=== PATIENT | male | born 1980 | race Caucasian/White ===

== ENCOUNTER 2020-02-24 11:24 | Outpatient (CLI) | payer OTHER, SELFPAY ==
--- NOTE | ~2020-02-24 | XR_ITS ---
XR knee RT min 4V, XR knee LT min 4V 02/24/2020 11:48 Indication: Bilateral knee pain Procedure: 4 views each knee Comparison: No prior studies for comparison. Findings: No acute fracture or traumatic malalignment. Small bilateral knee effusions. No significant joint space narrowing. No erosive changes. No radiopaque foreign bodies. Impression: 1: Small knee effusions. Reviewed, dictated and finalized at location B. Impression: 1: Small knee effusions. Impression: 1: Small knee effusions.
== END 2020-02-24 11:25 | disposition home or self-care (01) ==
LOC: ANHIMG 11:32
PROVIDERS: PCP Emergency Medicine; Visit Provider Emergency Medicine
DX: M25.461 Effusion, right knee (principal); M25.462 Effusion, left knee
CPT/HCPCS: 73564

== ENCOUNTER 2020-07-22 19:31 | Emergency (ER) | payer OTHER, SELFPAY ==
[2020-07-22 19:39] VITALS: BP 147/89; PULSE 111; RESP 29; TEMP 35.8; O2SAT 100
--- NOTE | 2020-07-22 20:42 | PC.NURSE ---
Per pt took 1/2 gram amphetimines yesterday.
--- NOTE | 2020-07-22 20:52 | ED.DIZZY ---
HPI - Dizziness General Chief Complaint: Dizziness Stated Complaint: headache/dizzy/thinks he was poisoned Time Seen by Provider: 07/22/20 20:42 Source: patient Mode of arrival: ambulatory Limitations: no limitations History of Present Illness HPI Narrative: A 39-year-old male comes into the emergency department tonight with complaints of dizziness, lightheadedness and all of his veins constricting . Patient states that this happened after he was drinking a cup of coffee. He notes that he felt he may have been poisoned by coworkers. He states that he thinks that none of his coworkers like him. Patient does admit to using amphetamines yesterday. He was very anxious when this was happening. He now states that he is feeling fine, has returned to normal and does not wish to be seen. Related Data Home Medications Medication Instructions Recorded Confirmed metoprolol succinate PO 07/22/20 paroxetine HCl mg PO 07/22/20 Allergies Allergy/AdvReac Type Severity Reaction Status Date / Time No Known Allergies Allergy Verified 07/22/20 20:42 Review of Systems Review of Systems: Narrative: Patient states that he no longer wants to be seen and would like to leave [facility] Social History Social History Gender identity (if verbalized by the patient): Male Exam Narrative: Exam Narrative: GENERAL: Well-appearing, well-nourished, and in no acute distress. HEAD: Normocephalic, atraumatic. EYES: PERRLA and EOMI. ENT: Nares clear, no rhinorrhea or epistaxis. Mucous membranes moist. Oropharynx without tonsillar hypertrophy exudate or other lesions. Bilateral TMs pearly sandhu nonbulging NECK: Supple. No adenopathy or masses. No carotid bruits or JVD CHEST: Clear to auscultation. No respiratory distress. No wheezes rales or rhonchi HEART: Regular rate and rhythm. No murmur heard. Normal peripheral pulses. ABDOMEN: Soft, nontender, nondistended, normal active bowel sounds. EXTREMITIES: Normal range of motion. No edema. SKIN: Warm, dry, no rash. NEURO: No focal deficits. Alert and oriented x3. PSYCH: Normal mood and affect. Course Vital Signs Vital signs: Vital Signs Temperature 35.8 C L 07/22/20 19:39 Pulse Rate 111 H 07/22/20 19:39 Respiratory Rate 29 H 07/22/20 19:39 Blood Pressure 147/89 H 07/22/20 19:39 Pulse Oximetry 100 07/22/20 19:39 Temperature 35.8 C L 07/22/20 19:39 Pulse Rate 111 H 07/22/20 19:39 Respiratory Rate 29 H 07/22/20 19:39 Blood Pressure 147/89 H 07/22/20 19:39 Pulse Oximetry 100 07/22/20 19:39 MDM - Dizziness MDM Narrative Medical decision making narrative: In brief a 39-year-old male came into the emergency department with complaints of feeling very anxious when he was drinking some coffee. Patient stated that this happened at work and he thought maybe he was being poisoned. By the time I evaluated the patient he stated that he was feeling better, back to baseline. He was denying any complaints. He did admit to using amphetamines yesterday. Based on the patient's brief history that I was able to obtain I feel that this was likely anxiety secondary to stimulant usage. Patient does not wish to stay and will be leaving. Discharge Plan Discharge Clinical Impression: Stimulant abuse Patient Disposition: Home, Self-Care Condition: Improved Instructions: Dizziness (ED) Prescriptions: No Action paroxetine HCl 10 mg tablet PO RF: 0 metoprolol succinate 25 mg tablet extended release 24 hr PO RF: 0 Follow-up/Referrals: Conrado Joseph MD [Primary Care Provider] - Time of Disposition: 20:55
== END 2020-07-22 21:13 | disposition home or self-care (01) ==
LOC: ANHED 21:05
PROVIDERS: Emergency Provider Emergency Medicine; PCP Emergency Medicine
DX: F15.10 Other stimulant abuse, uncomplicated (principal)
CPT/HCPCS: 99281

== ENCOUNTER → 2020-09-15 07:00 | Outpatient (CLI) | payer OTHER, SELFPAY ==
[2020-09-15 17:58] LABS: SARS-CoV-2 RNA PCR Negative
== END ==
PROVIDERS: PCP Emergency Medicine; Visit Provider Emergency Medicine
DX: R09.89 Other specified symptoms and signs involving the circulatory and respiratory systems (principal); Z20.822 Contact with and (suspected) exposure to COVID-19
CPT/HCPCS: C9803; U0003; U0005

== ENCOUNTER 2020-09-15 08:15 | Outpatient (CLI) | payer OTHER, SELFPAY ==
--- NOTE | ~2020-09-15 | XR_ITS ---
EXAMINATION: XR cervical spine 4-5V EXAM DATE: 09/15/2020 08:28 INDICATION: Neck pain. No known recent injury. TECHNIQUE: Cervical spine frontal, lateral, lateral swimmers, and open-mouth odontoid projections. There is no prior study for comparison. FINDINGS: Mild disc disease at C5-6, probably mild to moderate uncovertebral joint arthropathy at th at level. Otherwise overall mild cervical facet and uncovertebral joint arthropathy. The vertebral amanda dies are aligned in the AP dimension. The odontoid process is intact. The lateral masses of C1 line up with C2. Prevertebral soft tissue and pre-dens space are within normal limits. Lung apices unremar kable. IMPRESSION: Mild cervical spondylosis. Reviewed, dictated and finalized at location A. IMPRESSION: Mild cervical spondylosis.
== END 2020-09-15 08:16 | disposition home or self-care (01) ==
LOC: ANHIMG 08:18
PROVIDERS: PCP Emergency Medicine; Visit Provider Emergency Medicine
DX: M47.892 Other spondylosis, cervical region (principal)
CPT/HCPCS: 72050; C9803; U0003; U0005

== ENCOUNTER → 2021-08-30 15:37 | Outpatient (CLI) | payer OTHER, SELFPAY ==
--- NOTE | ~2021-08-30 | XR_ITS ---
EXAMINATION: XR lumbar spine 2-3V DATE: 08/30/2021 16:23 INDICATION: Low back pain TECHNIQUE: Anteroposterior and lateral views of the lumbar spine, and cone-down lateral view of the l umbosacral junction were obtained. COMPARISON: None. FINDINGS: There is no fracture, dislocation, or subluxation. The vertebral body heights are maintaine d. There is mild loss of intervertebral disc space height at L5-S1. Small degenerative osteophytes pr oject from the anterior endplates of multiple vertebral bodies. The bowel gas pattern is normal. IMPRESSION: 1. Mild lumbar spondylosis. Reviewed, dictated and finalized at location B. IMPRESSION: 1. Mild lumbar spondylosis.
--- NOTE | ~2021-08-30 | XR_ITS ---
EXAMINATION: XR hand LT min 3V INDICATION: Left hand pain TECHNIQUE: Three views of the left hand are obtained. COMPARISON: 04/22/2019 FINDINGS: There is no fracture, dislocation, or subluxation. The joint spaces are normal. The soft ti ssues are unremarkable. IMPRESSION: 1. Unremarkable hand radiographs. Reviewed, dictated and finalized at location B.
--- NOTE | ~2021-08-30 | XR_ITS ---
XR shoulder RT min 2V 08/30/2021 16:23 Indication: Right shoulder pain Procedure: 4 views right shoulder Comparison: No prior studies for comparison. Findings: No fracture, subluxation or dislocation. There is anatomic alignment. No soft tissue abnorm ality. No foreign bodies. Impression: 1: No significant bone or joint abnormality. Reviewed, dictated and finalized at location A. Impression: 1: No significant bone or joint abnormality.
--- NOTE | ~2021-08-30 | XR_ITS ---
XR shoulder LT min 2V 08/30/2021 16:23 Indication: Left shoulder pain Procedure: 4 views left shoulder Comparison: No prior studies for comparison. Findings: There is mild-moderate osteoarthritis of the left acromioclavicular joint. Glenohumeral deloris nt and anatomic alignment. No fracture or traumatic malalignment. No significant soft tissue abnormal ity or foreign body. 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 Reviewed, dictated and finalized at location A. 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
--- NOTE | ~2021-08-30 | XR_ITS ---
EXAMINATION: XR hand RT min 3V INDICATION: Right hand pain TECHNIQUE: Three views of the right hand are obtained. COMPARISON: None available FINDINGS: There is no fracture, dislocation, or subluxation. The joint spaces are normal. The soft ti ssues are unremarkable. IMPRESSION: 1. Unremarkable and radiographs. Reviewed, dictated and finalized at location B.
== END ==
PROVIDERS: PCP Emergency Medicine; Visit Provider Emergency Medicine
DX: M47.896 Other spondylosis, lumbar region (principal); M19.012 Primary osteoarthritis, left shoulder; M25.511 Pain in right shoulder; M25.541 Pain in joints of right hand; M25.542 Pain in joints of left hand
CPT/HCPCS: 72100; 73030; 73130